=== PATIENT | female | born 1940 | race Caucasian/White ===

== ENCOUNTER 2018-05-13 11:33 | Emergency (ER) | payer OTHER ==
[~2018-05-13] VITALS: Ht 152.4 cm; Wt 78.0 kg
[2018-05-13] MEDS ORDERED: LISINOPRIL-HCT1 EAC2 PO (11:49)
[2018-05-13] MEDS ORDERED: CHILDREN'S ASPI81 M1 PO (11:50)
[2018-05-13] MEDS ORDERED: ZOCOR20 MG PO (11:50)
[2018-05-13] MEDS ORDERED: LEVOTHYROXINE100 MC1 PO (11:50)
[2018-05-13] MEDS ORDERED: GLUCOPHAGE XR500 MG PO (11:51)
[2018-05-13] MEDS ORDERED: PROZAC20 MG PO (11:51)
[2018-05-13 11:59] LABS: ABSOLUTE BASOPHILS 0.1 thou/uL (0.0-0.2); ABSOLUTE EOSINOPHILS 0.2 thou/uL (0.0-0.7); ABSOLUTE LYMPHOCYTES 2.5 thou/uL (0.8-5.3); ABSOLUTE MONOCYTES 0.7 thou/uL (0.0-1.2); ABSOLUTE NEUTROPHILS 7.2 thou/uL (1.6-8.1); BASOPHILS 1.1 %; EOSINOPHILS 1.6 %; HEMATOCRIT 45.2 % (37.0-47.0); LYMPHOCYTES 23.4 %; MCH 29.6 pg (26.0-34.0); MCHC 33.1 g/dL (28.0-37.0); MCV 89.2 fL (80.0-100.0); MONOCYTES 6.8 %; MPV 8.8 fl. (7.2-11.1); NUCLEATED RBCS 0 /100WBC; PLATELET COUNT* 315 thou/uL (150-400); POLYS 67.1 %; RBC 5.07 mil/uL (4.20-5.00); WBC 10.7 thou/uL (4.0-11.0)
[2018-05-13 12:06] LABS: CALCIUM 9.9 mg/dL (8.5-10.1); CREATININE 1.1 mg/dL (0.6-1.3); POTASSIUM 3.9 mmol/L (3.5-5.1)
[2018-05-13 12:11] LABS: TOTAL BILIRUBIN 0.9 mg/dL (<0.1-1.0); TOTAL PROTEIN 8.2 g/dL (6.4-8.2)
[2018-05-13] MEDS ORDERED: PREDNISONE 10 M10 M1 PO (12:54)
[2018-05-13] MEDS ORDERED: ZOVIRAX800 MG PO (12:55)
[2018-05-13 13:20] VITALS: BP 182/85
== END 2018-05-13 13:21 | disposition home or self-care (01) ==
LOC: M.ERS 11:33
PROVIDERS: Emergency Medicine Emergency Medical Services
DX: G51.0 Bell's palsy (principal)

== ENCOUNTER → 2019-12-26 | Outpatient (CLI) | payer MEDICARE ==
[~2019-12-26] MED LIST: CHILDREN'S ASPI81 M1 PO; GLUCOPHAGE XR500 MG PO; LEVOTHYROXINE100 MC1 PO; LISINOPRIL-HCT1 EAC2 PO; PREDNISONE 10 M10 M1 PO; PROZAC20 MG PO; ZOCOR20 MG PO; ZOVIRAX800 MG PO
== END ==
LOC: M.RAD 13:12
PROVIDERS: ATTEND Family Medicine
DX: M85.88 Other specified disorders of bone density and structure, other site (principal); Z78.0 Asymptomatic menopausal state